=== PATIENT | male | born 1980 | race Caucasian/White ===

== ENCOUNTER 2024-04-08 23:25 | Emergency (ER) | payer SELFPAY ==
[2024-04-08 23:33] VITALS: BP 160/114; PULSE 115; RESP 18; TEMP 36.5; O2SAT 97; BMI 30.2
--- NOTE | 2024-04-08 23:34 | [facility].EDGENADL ---
Discharge Plan Disposition Patient Disposition: Home, Self-Care Prescriptions Prescriptions: New oxycodone 5 mg tablet 5 mg PO Q8H PRN (Reason: pain) Qty: 8 0RF No Action methotrexate sodium [Methotrexate (Anti-Rheumatic)] 2.5 mg Tablet 15 mg PO WEEKLY prednisone 10 mg Tablet 90 mg PO DAILY tizanidine [Zanaflex] 4 mg Tablet 4 mg PO NEEDED PRN (Reason: pain) Rx Instructions: PRN TID hydroxychloroquine [Plaquenil] 200 mg Tablet 200 mg PO BID Humira Pen 40 mg/0.8 mL Pen Injector Kit 40 mg SQ WEEKLY Referrals Follow up/Referrals: Provider,Referral, MD [Primary Care Provider] - See instructions Activity Restrictions/Add. Instructions Additional Instructions/Restrictions: Please follow-up with your primary care provider and with your clinical trial head. Please return to the emergency department if you develop any new or worsening symptoms or become concerned for your health. Clinical Impressions Clinical Impression: Rheumatoid arthritis flare Discharge ED Provider: Sherwin Mora Adult HPI General Chief complaint: PAIN Stated complaint: rheumatoid arthritis, sever joint pain swelling Time Seen by Provider: 04/08/24 23:34 History of Present Illness HPI narrative: 43-year-old male with reported history of severe rheumatoid arthritis presents with concern for flare. He reports that he is having generalized joint pain and swelling. Denies any fever. She reports that he has been having flares more frequently recently. He reports that he has been unable to see a clinical trial head for the last 6 months but he is scheduled to see a new one starting in April. He reports that he is on Humira, hydroxychloroquine, methotrexate and 90 mg of prednisone daily. Reports his last flare was about a month ago. Related Data Home Medications Medication Instructions Recorded Confirmed adalimumab 40 mg/0.8 mL 40 mg SQ WEEKLY 04/08/24 04/08/24 subcutaneous pen kit (Humira Pen) hydroxychloroquine 200 mg tablet 200 mg PO BID 04/08/24 04/08/24 (Plaquenil) methotrexate sodium 2.5 mg tablet 15 mg PO WEEKLY 04/08/24 04/08/24 prednisone 10 mg tablet 90 mg PO DAILY 04/08/24 04/08/24 tizanidine 4 mg tablet (Zanaflex) 4 mg PO NEEDED PRN pain 04/08/24 04/08/24 Previous Rx's Medication Instructions Recorded oxycodone 5 mg tablet 5 mg PO Q8H PRN pain #8 tabs 04/08/24 Allergies Allergy/AdvReac Type Severity Reaction Status Date / Time ketorolac [From Toradol] Allergy Verified 04/08/24 23:51 NSAIDS (Non-Steroidal Allergy Verified 04/08/24 23:42 Anti-Inflamma Sulfa (Sulfonamide Allergy Verified 04/08/24 23:42 Antibiotics) tramadol Allergy Verified 04/08/24 23:51 [facility] Disclaimer: The information contained in this section may have been updated after the patient was seen, as this information can be updated by other users. Social History Smoking Status: Never smoker alcohol intake: never current occupational status: employed Travel in the last 8 weeks: Inside the [place] ROS Obtained: Yes All systems reviewed & no additional complaints except as documented Physical Exam General General appearance: alert and in no apparent distress Head Head exam: atraumatic and normocephalic Eye Eye exam: Present normal appearance, PERRL and EOMI ENT ENT exam: Present normal oropharynx and normal external ear exam Neck Neck exam: Present normal inspection and full ROM Chest Chest inspection: Present normal inspection and symmetric chest wall rise; Absent tenderness Respiratory Respiratory exam: Present normal lung sounds bilaterally; Absent respiratory distress Cardiovascular Cardiovascular exam: Present regular rate and normal rhythm Abdominal Exam Abdominal exam: Present soft; Absent distention, tenderness or guarding Extremities Exam Extremities exam: Present normal inspection and tenderness (Generalized joint tenderness, no significant swelling, no overlying erythema); Absent edema or joint swelling Back Exam Back exam: Present normal inspection; Absent tenderness Neurological Exam Neurological exam: Present alert and oriented X3; Absent motor sensory deficit Psychiatric Psychiatric exam: Present normal affect and normal mood Skin Skin exam: Present warm, dry and normal color Lymphatic Lymphatic Findings: no adenopathy Medical Decision Making Medical Records Medical records reviewed: Yes I reviewed the patient's medical records. Roger Inquiry Pt receiving controlled substance: No Roger was queried for this patient: No Vital Signs: 04/08/24 23:33 04/09/24 00:08 Temperature 97.7 F 97.7 F Temperature Source Oral Pulse Rate 104 H Pulse Rate [Left] 115 H Respiratory Rate 18 18 Blood Pressure 150/97 H Blood Pressure [Right Arm] 160/114 H Blood Pressure Mean [Right Arm] 129 Blood Pressure Source [Right Arm] Automatic Cuff Blood Pressure Position [Right Arm] Sitting 02 Sat by Pulse Oximetry 97 Oxygen Delivery Method Room Air Lab Data Lab results reviewed: Yes I reviewed the patient's lab results. Orders (Tests/Meds): ED MEDICATIONS Discontinued Medications Generic Name Dose Route Start Last Admin Trade Name Chun PRN Reason Stop Dose Admin Acetaminophen 325 mg 04/09/24 00:01 04/09/24 00:04 Acetaminophen 325mg Tab PO 04/09/24 00:02 325 mg ONCE ONE Administration Methylprednisolone Sodium Succinate 125 mg 04/08/24 23:40 04/08/24 23:53 Methylprednisolone Sod Succ 125mg Vial IM 04/08/24 23:41 125 mg ONCE ONE Administration Oxycodone HCl 5 mg 04/08/24 23:40 04/08/24 23:54 Oxycodone 5mg Immediate Release Tablet PO 04/08/24 23:41 5 mg ONCE ONE Administration Medical Decision Narrative: 43-year-old male with history of arteritis on numerous controlling medications presents with generalized joint pain over the last several days concerning for a rheumatoid flare.. History was obtained interactive discussion with patient, family. On arrival, patient is [afebrile, hemodynamically stable, satting appropriately, alert, oriented x4, GCS 15], moving all extremities spontaneously. Full physical exam performed and significant for generalized joint tenderness, no evidence of acute infectious process. Differential includes rheumatoid flare, joint infection, systemic infection. Given patient history, exam and workup, patient's presentation most likely represents return arthritis flare. Patient was given a single dose of IM methylprednisolone 125 mg for rheumatoid arthritis and a dose of oral oxycodone and Tylenol. Patient was discharged with a short prescription for oxycodone for acute pain control. Patient discharged in stable condition. Procedures Risk/Benefits of Procedure(s) Were Explained: Yes Critical Care Critical Care Time Critical Care Time: No
[2024-04-08] MEDS: METHYLPREDNISOLONE SOD SUCC 125MG VIAL 125 MG IM (23:53)
[2024-04-08] MEDS: OXYCODONE 5MG IMMEDIATE RELEASE TABLET 5 MG PO (23:54)
[2024-04-09] MEDS: ACETAMINOPHEN 325MG TAB 325 MG PO (00:04)
[2024-04-09 00:08] VITALS: BP 150/97; PULSE 104; RESP 18; TEMP 36.5; O2SAT 97
== END 2024-04-09 00:10 | disposition home or self-care (01) ==
PROVIDERS: Emergency Provider Emergency Medicine
DX: M06.09 Rheumatoid arthritis without rheumatoid factor, multiple sites (principal)
CPT/HCPCS: 96372; 99283; J2919